=== PATIENT | male | born 1945 | race Caucasian/White ===

== ENCOUNTER 2021-02-10 06:00 | Outpatient (RCR) | payer BC, SELFPAY | END 2021-03-09 23:59 | disposition home or self-care (01) | LOC: MPT 06:00 | PROVIDERS: Absent Provider Hospitalist; Family Provider Family Medicine; Visit Provider Hospitalist | DX: M62.81 Muscle weakness (generalized) (principal); M25.50 Pain in unspecified joint; M54.9 Dorsalgia, unspecified; M79.10 Myalgia, unspecified site | CPT/HCPCS: 97110; 97112; 97161; G0283 ==

== ENCOUNTER 2021-03-10 06:00 | Outpatient (RCR) | payer BC, SELFPAY | END 2021-04-09 23:59 | disposition home or self-care (01) | LOC: MPT 06:00 | PROVIDERS: Absent Provider Hospitalist; Family Provider Family Medicine; Visit Provider Hospitalist | DX: M62.81 Muscle weakness (generalized) (principal); M25.50 Pain in unspecified joint; M54.9 Dorsalgia, unspecified | CPT/HCPCS: 97110; 97140; G0283 ==